=== PATIENT | male | born 1980 | race Caucasian/White ===

== ENCOUNTER → 2020-04-08 | Outpatient (CLI) | payer BC | LOC: ZCOL.LAB 16:04 | DX: J02.9 Acute pharyngitis, unspecified (principal); Z20.828 Contact with and (suspected) exposure to other viral communicable diseases ==

== ENCOUNTER 2024-02-04 03:32 | Emergency (ER) | payer BC ==
[~2024-02-04] VITALS: Ht 175.3 cm; Wt 113.6 kg
[2024-02-04] MEDS ORDERED: fentaNYL 50 MCG/ML 2 ML VIAL IV ONE (04:00)
[2024-02-04] MEDS ORDERED: NS 1,000 ML IV ONE (04:00)
[2024-02-04] MEDS ORDERED: Ketorolac 15 MG/ML VIAL IV ONE (04:00)
[2024-02-04] MEDS ORDERED: Ondansetron 4 MG/2 ML VIAL IV ONE (04:00)
[2024-02-04 04:36] LABS: BASO # 0.1 K/mm3 (0.0-0.2); BASO % 0.5 % (0.0-2.0); EOS # 0.2 K/mm3 (0.0-0.7); EOS % 1.7 % (0.0-4.0); GRAN # 7.9 K/mm3 (1.4-6.5); GRAN % 63.1 % (42.2-75.2); LYMPH # 3.4 K/mm3 (1.2-3.4); LYMPH % 26.9 % (20.0-51.0); MEAN CELL VOLUME 87 fl (80.0-100.0); MEAN CORPUSCULAR HEMOGLOBIN 30 pg (27-31); MEAN CORPUSCULAR HGB CONC 34 g/dl (33.0-37.0); MEAN PLATELET VOLUME 10.7 fl (7.4-10.4); MONO # 0.9 K/mm3 (0.1-0.6); MONO % 7.2 % (1.7-9.3); PLATELET COUNT 260 K/mm3 (130-400); RED BLOOD COUNT 6.04 M/mm3 (4.20-5.60); REDCELL DISTRIBUTION WIDTH-CV 12.9 % (11.5-14.5)
[2024-02-04 04:40] VITALS: BP 107/68; PULSE 63; TEMP 98.1
[2024-02-04 05:41] LABS: HEMATOCRIT 52.5 % (42.0-52.0)
[2024-02-04 09:00] LABS: CREATININE, serum 1.19 mg/dL (0.72-1.25)
[2024-02-04 09:01] LABS: ALBUMIN 5.2 g/dL (3.5-5.0); BILIRUBIN,TOTAL 0.8 mg/dL (0.2-1.2); POTASSIUM 3.5 mEq/L (3.5-4.5)
== END 2024-02-04 04:45 | disposition short-term general hospital (02) ==
LOC: COL.ER 03:32
PROVIDERS: Emergency Medicine
DX: N50.812 Left testicular pain (principal)
CPT/HCPCS: J1885; J2405; J3010; J7030